=== PATIENT | female | born 1980 | race Two or more races ===

== ENCOUNTER → 2024-07-17 | Outpatient (CLI) | payer BC, SELFPAY ==
[2024-07-19 08:09] LABS: ASO Titer 59.7 IU/mL (0.0-200.0)
[2024-07-20 13:07] LABS: ANTINUCLEAR ANTIBODIES DIRECT Negative (Negative)
[2024-07-21 15:09] LABS: CMV Acute Antibody IgM < 30.0 AU/mL (0.0-29.9); CMV Antibody IgG < 0.60 U/mL (0.00-0.59); Coxsackie A Type 16 IgM Negative titer (Neg:<1:10); Coxsackie A Type 24 IgM Negative titer (Neg:<1:10); Coxsackie A Type 7 IgM Negative titer (Neg:<1:10); Coxsackie A Type 9 IgM Negative titer (Neg:<1:10)
== END | disposition home or self-care (01) ==
LOC: LABSPEC 12:04
PROVIDERS: Referring Provider Nurse Practitioner Family; Visit Provider Nurse Practitioner Family
DX: F41.9 Anxiety disorder, unspecified (principal); F42.9 Obsessive-compulsive disorder, unspecified; A44.0 Systemic bartonellosis; R53.82 Chronic fatigue, unspecified; R41.89 Other symptoms and signs involving cognitive functions and awareness
CPT/HCPCS: 86038; 86060; 86225; 86235; 86644; 86645; 86658

== ENCOUNTER → 2024-08-14 | Outpatient (CLI) | payer BC, SELFPAY | END | disposition home or self-care (01) | PROVIDERS: Referring Provider Nurse Practitioner Family; Visit Provider Nurse Practitioner Family | DX: F41.9 Anxiety disorder, unspecified (principal); F32.A Depression, unspecified; R63.0 Anorexia; R63.4 Abnormal weight loss; R11.0 Nausea | CPT/HCPCS: 82175; 82570; 83655; 83825 ==

== ENCOUNTER → 2024-08-20 | Outpatient (CLI) | payer BC, SELFPAY | END | disposition home or self-care (01) | PROVIDERS: Referring Provider Nurse Practitioner Family; Visit Provider Nurse Practitioner Family | DX: F41.9 Anxiety disorder, unspecified (principal); R63.0 Anorexia; R63.4 Abnormal weight loss ==